=== PATIENT | male | born 1960 | race Caucasian/White ===

== ENCOUNTER 2018-12-09 03:55 | Day surgery (SDC) | payer OTHER ==
[~2018-12-09] VITALS: Ht 175.3 cm; Wt 80.4 kg
[2018-12-09] MEDS ORDERED: ATOM40CA PO (04:05)
[2018-12-09] MEDS ORDERED: NAPR-856 PO (04:05)
[2018-12-09] MEDS ORDERED: LISI-167 PO (04:05)
--- NOTE | 2018-12-09 04:16 | NUR ---
PT PRESENTED WITH C/O RIGHT SIDED CP THAT RADIATES TO RIGHT BACK, STATES THAT HE WAS AWOKE THIS MORNING AT 0230 WITH PAIN THAT FEELS LIKE A DULL ACHE, PAIN IS CONSTANT, PT DIAPHORETIC, HAS SOME NAUSEA, DENIES SOB, DENIES INJURY/TRAUMA. MONITORS APPLIED, SIDERAILS UP X2, CALL LIGHT WITHIN REACH. ERP AT BEDSIDE FOR EVAL
[2018-12-09] MEDS ORDERED: SODIUM CHLORIDE FLUSH 10ML SYR IVF ONE (04:30)
[2018-12-09] MEDS ORDERED: ONDANSETRON 2MG/ML, 2ML IVPush ONE ×2 (04:30→10:30)
[2018-12-09] MEDS ORDERED: MORPHINE SULFATE 4 MG/ML, 1ML ONE ×2 (04:32→05:37)
[2018-12-09] MEDS ORDERED: ONDANSETRON 2MG/ML, 2ML ONE ×2 (04:32→10:24)
[2018-12-09] MEDS: MORPHINE SULFATE 4 MG/ML, 1ML IVPush PRN ×2 (04:34→05:39)
--- NOTE | 2018-12-09 04:38 | NUR ---
IV SITE STARTED, LABS DRAWN, PT MEDICATED PER MAR
[2018-12-09 04:55] LABS: BASOPHILS # (AUTO) 0.02 x10^3/uL (0-0.1); BASOPHILS % (AUTO) 0 % (0-1); EOSINOPHILS # (AUTO) 0.06 x10^3/uL (0-0.4); EOSINOPHILS % (AUTO) 1 % (1-7); LYMPHOCYTES % (AUTO) 23 % (22-44); MD NO; MEAN CORPUSCULAR HEMOGLOBIN 32.5 pg (27.5-34.5); MEAN CORPUSCULAR HGB CONC 33.9 g/dL (33.2-36.2); MEAN CORPUSCULAR VOLUME 95.8 fL (81-97); MEAN PLATELET VOLUME 7.4 fL (7.4-10.4); MONOCYTES # (AUTO) 0.65 x10^3/uL (0.2-0.8); MONOCYTES % (AUTO) 9 % (2-9); NEUTROPHILS % (AUTO) 67 % (42-75); PLATELET COUNT 234 x10^3/uL (130-400); RED BLOOD COUNT 4.89 x10^6/uL (4.38-5.82); RED CELL DISTRIBUTION WIDTH 12.3 % (9.4-14.8)
[2018-12-09 04:57] LABS: ALBUMIN 4.1 g/dL (3.4-5.0); ANION GAP 8 mmol/L (5-15); CHLORIDE 107 mmol/L (98-107)
[2018-12-09 05:00] LABS: D-DIMER 0.19 ug/mlFEU (0.00-0.52); INTERNATIONAL NORMALIZED RATIO 0.94 (0.93-1.1); PROTHROMBIN TIME 9.9 Seconds (9.6-11.5)
[2018-12-09 05:04] LABS: ALANINE AMINOTRANSFERASE 47 U/L (12-78); ALKALINE PHOSPHATASE 49 U/L (45-117); BILIRUBIN,TOTAL 0.5 mg/dL (0.2-1.0); CREATININE 1.12 mg/dL (0.7-1.3); TOTAL PROTEIN 6.7 g/dL (6.4-8.2); TROPONIN I < 0.015 ng/mL (0.000-0.045)
--- NOTE | 2018-12-09 05:35 | NUR ---
PT RESTING ON GURNEY, MONITORS IN PLACE, CALL LIGHT WITHIN REACH. PT AWARE OF NEED FOR URINE SAMPLE, STATED HE IS UNABLE TO VOID AT THIS TIME
[2018-12-09] MEDS ORDERED: KETOROLAC 30 MG/1 ML ONE (05:53)
[2018-12-09] MEDS ORDERED: KETOROLAC 30 MG/1 ML IVPush ONE (06:00)
[2018-12-09] MEDS ORDERED: HYDROmorphone 1 MG/ML, 1ML ONE ×2 (06:25→10:25)
[2018-12-09] MEDS ORDERED: HYDROmorphone 1 MG/ML, 1ML IV ONE (06:30)
--- NOTE | 2018-12-09 07:08 | NUR ---
report given to cynthia yeung
--- NOTE | 2018-12-09 08:42 | NUR ---
Patient given water for oral fluid challenge
--- NOTE | 2018-12-09 08:56 | NUR ---
Bedside report to CHANEL Theodore care transferred at this time.
--- NOTE | 2018-12-09 09:30 | NUR ---
PROVIDER MADE AWARE OF CONTINUED PAIN. TO RE-DOSE AND PROVIDER TO CONSULTSURGERY
[2018-12-09] MEDS ORDERED: HYDROmorphone 2 MG/ML, 1ML IVPush PRN ×2 (10:30→15:00)
--- NOTE | 2018-12-09 11:17 | NUR ---
PATIENT REPORTS PAIN CONTROLLED TO 4/10 AFTER ADDITIONAL DILAUDID ADMINISTRATION. VSS. DR. GUTIERREZ PAGED TO INFORM OF PATIENT BEING RELOCATED TO RM 464 FOR INITIAL EVAL.
--- NOTE | 2018-12-09 11:45 | NUR ---
Dr ortiz to see patient in the ER shortly. Throughput RN made aware of transfer delay
--- NOTE | 2018-12-09 11:55 | NUR ---
DR GUTIERREZ AT BEDSIDE.
[2018-12-09 12:21] VITALS: BP 148/86
[2018-12-09] MEDS ORDERED: BUPIVACAINE/PF-EPI 0.5% 1:200K ONE (13:00)
[2018-12-09] MEDS ORDERED: FENTANYL PF 250 MCG/5ML ONE (13:12)
[2018-12-09] MEDS ORDERED: MIDAZOLAM 1 MG/ML, 2ML ONE (13:12)
[2018-12-09] MEDS ORDERED: PROPOFOL 10 MG/ML, 20ML ONE (13:20)
[2018-12-09] MEDS ORDERED: CEFAZOLIN 1,000 MG ONE (13:20)
[2018-12-09] MEDS ORDERED: DEXAMETHASONE 4 MG/ML, 1ML ONE (13:20)
[2018-12-09] MEDS ORDERED: ROCURONIUM 10MG/ML,5ML ONE (13:20)
[2018-12-09] MEDS ORDERED: SUCCINYLCHOLINE 20 MG/ML, 10ML ONE (13:20)
[2018-12-09] MEDS ORDERED: OXYcodone 5 MG/5 ML ORAL.SOL UDC ONE (14:25)
[2018-12-09] MEDS ORDERED: FENTANYL PF 100 MCG/2ML ONE (14:25)
[2018-12-09] MEDS ORDERED: MEPERIDINE/PF 25MG/ML,1ML ONE (14:25)
[2018-12-09] MEDS: FENTANYL PF 100 MCG/2ML IV PRN ×2 (14:50→15:00)
[2018-12-09] MEDS ORDERED: MEPERIDINE/PF 25MG/0.5ML IVPush PRN (15:00)
[2018-12-09] MEDS ORDERED: LABETALOL 5MG/ML, 20ML IV PRN (15:00)
[2018-12-09] MEDS ORDERED: hydrALAzine 20 MG/ML, 1ML IV PRN (15:00)
[2018-12-09] MEDS ORDERED: PROMETHAZINE 25 MG/ML, 1ML IV PRN (15:00)
[2018-12-09] MEDS ORDERED: OXYcodone 5 MG/5 ML ORAL.SOL UDC PO PRN (15:00)
[2018-12-09] MEDS ORDERED: ONDANSETRON 2MG/ML, 2ML IV PRN (15:00)
[2018-12-09 15:52] VITALS: BP 135/82
[2018-12-09] MEDS ORDERED: OXYC-302 PO (19:45)
[2018-12-09 20:18] VITALS: BP 138/72
== END 2018-12-09 20:55 | disposition home or self-care (01) ==
LOC: ED 05:48 → OR 10:36 → UNDOADMIN 10:36 → EDIP 10:36 → 4NOR 12:25 → EDIP 12:25 → UNDODISIN 20:55 → OR 20:55
PROVIDERS: ATTEND Emergency Medicine
DX: K80.12 Calculus of gallbladder with acute and chronic cholecystitis without obstruction (principal); Z72.89 Other problems related to lifestyle; Z79.01 Long term (current) use of anticoagulants
CPT/HCPCS: 36415; 47562; 71045; 76700; 80053; 83690; 84484; 85025; 85379; 85610; 85730; 88304; 93005; J0330; J0690; J1100; J1170; J1885; J2175; J2250; J2405; J2704; J3010; G0378